=== PATIENT | female | born 1930 | race Caucasian/White ===

== ENCOUNTER 2018-12-01 19:46 | Emergency (ER) | payer OTHER ==
[~2018-12-01] VITALS: Ht 149.9 cm; Wt 47.6 kg
[2018-12-01 19:55] VITALS: BP_SYST 113
[2018-12-01] MEDS ORDERED: LIP10 PO (20:09)
[2018-12-01] MEDS ORDERED: CHOL100062 PO (20:10)
[2018-12-01] MEDS ORDERED: FOLI-43 PO (20:11)
[2018-12-01] MEDS ORDERED: FURO-150 PO (20:12)
[2018-12-01] MEDS ORDERED: ASA81 PO (20:13)
[2018-12-01] MEDS ORDERED: MELA3TAB PO (20:13)
[2018-12-01] MEDS ORDERED: DONE10TA44 PO (20:14)
[2018-12-01] MEDS ORDERED: CINA60TA PO (20:14)
[2018-12-01] MEDS ORDERED: POTA20TA83 PO (20:15)
[2018-12-01] MEDS ORDERED: MEMA5TAB PO (20:15)
[2018-12-01] MEDS ORDERED: SODI1POW PO (20:16)
[2018-12-01] MEDS ORDERED: MOM PO (20:18)
[2018-12-01] MEDS ORDERED: BISA10SU61 RC (20:19)
[2018-12-01] MEDS ORDERED: NA P133E41 RC (20:20)
[2018-12-01] MEDS ORDERED: ACET-2165 PO (20:21)
[2018-12-01 22:24] LABS: HEMATOCRIT 35.6 % (36-48); HEMOGLOBIN 11.5 g/dL (12.0-16.0); MEAN CORPUSCULAR HEMOGLOBIN 30 pg (27-31); MEAN CORPUSCULAR HGB CONC 32 % (32-36); MEAN CORPUSCULAR VOLUME 93 fL (79.0-98.0); PLATELET COUNT (AUTO) 149 K/uL (130-430); RED BLOOD CELL COUNT(AUTO) 3.83 MIL/uL (4.2-6.2); RED CELL DISTRIBUTION WIDTH 15.7 % (9.0-15.0); WHITE BLOOD COUNT (AUTO) 10.2 K/uL (4.8-10.8)
[2018-12-01 22:36] LABS: ANION GAP 5 (5-15); CALCIUM 10.7 mg/dL (8.4-11.0); CHLORIDE 118 mmol/L (98-107); CREATININE 1.38 mg/dL (0.55-1.30); GLUCOSE 83 mg/dL (70-99); POTASSIUM 3.3 mmol/L (3.5-5.1); SODIUM SERUM 152 mmol/L (136-145); UREA NITROGEN, BLOOD 24 mg/dL (8-21)
[2018-12-01 22:42] LABS: ALANINE AMINOTRANSFERASE 67 U/L (12-78); ALBUMIN 2.7 g/dL (3.4-4.8); ASPARTATE AMINOTRANSFERASE 50 U/L (10-37); TOTAL BILIRUBIN 0.1 mg/dL (0.0-1.0)
[2018-12-01 23:06] LABS: BAND % (MANUAL) 3 % (0-6); LYMPHOCYTES % (MANUAL) 16 % (20-46)
[2018-12-01 23:07] LABS: BASOPHILS % (MANUAL) 0 % (0-2); EOSINOPHILS % (MANUAL) 0 % (0-7); MONOCYTES % (MANUAL) 4 % (0-11)
[2018-12-02] MEDS ORDERED: D5W 500 ML IV ONE (00:45)
[2018-12-02] MEDS ORDERED: POTASSIUM CHLORIDE 20 MEQ TAB.PRT.SR PO ONE (02:00)
[2018-12-02] MEDS ORDERED: POTASSIUM CHLORIDE 20 MEQ/PKT PACKET PO ONE (02:15)
[2018-12-02 05:45] LABS: CALCIUM 10.5 mg/dL (8.4-11.0); CHLORIDE 118 mmol/L (98-107); CREATININE 1.26 mg/dL (0.55-1.30); GLUCOSE 173 mg/dL (70-99); POTASSIUM 3.8 mmol/L (3.5-5.1); SODIUM SERUM 148 mmol/L (136-145); UREA NITROGEN, BLOOD 21 mg/dL (8-21)
[2018-12-02 05:52] LABS: ALANINE AMINOTRANSFERASE 61 U/L (12-78); ALBUMIN 2.5 g/dL (3.4-4.8); ANION GAP 5 (5-15); ASPARTATE AMINOTRANSFERASE 52 U/L (10-37); TOTAL BILIRUBIN 0.2 mg/dL (0.0-1.0)
[2018-12-02 10:00] VITALS: BP_SYST 112
== END 2018-12-02 10:08 | disposition home or self-care (01) ==
LOC: SED 19:46
DX: E87.6 Hypokalemia (principal); E87.0 Hyperosmolality and hypernatremia; Z79.82 Long term (current) use of aspirin; Z79.899 Other long term (current) drug therapy
CPT/HCPCS: 36415; 80053; 85007; 85027; 93005; 99284; J7060